=== PATIENT | male | born 1965 | race Hispanic/Latino ===

== ENCOUNTER 2016-10-08 15:39 | Emergency (ER) | payer MEDICAID, OTHER ==
[2016-10-08 15:40] VITALS: BMI 19.3
[2016-10-08 15:51] VITALS: BP 124/82; PULSE 70; RESP 16; TEMP 97.9; O2SAT 99
[2016-10-08 16:57] LABS: BASO % 0.5 % (0.0-2.0); EOS # 0.2 K/uL (0.0-0.7); EOS % 2.3 % (0.0-4.0); HEMATOCRIT 48.1 % (35.0-51.0); LYMPH # 2.3 K/uL (1.0-4.3); LYMPH % 33.6 % (20.0-40.0); MEAN CELL VOLUME 87.2 fl (80.0-94.0); MEAN CORPUSCULAR HEMOGLOBIN 28.9 pg (27.0-31.0); MEAN CORPUSCULAR HGB CONC 33.1 g/dL (33.0-37.0); MEAN PLATELET VOLUME 8.6 fl (7.2-11.7); MONO # 0.5 K/uL (0.0-0.8); MONO % 6.6 % (0.0-10.0); NEUT # 3.9 K/uL (1.8-7.0); NRBC % 0.1 % (0.0-0.0); RED CELL DISTRIBUTION WIDTH 13.5 % (11.5-14.5); WHITE BLOOD COUNT 6.9 K/uL (4.8-10.8)
[2016-10-08 17:13] LABS: BLOOD UREA NITROGEN 12 mg/dl (9-20); CALCIUM 9.5 mg/dL (8.4-10.2); CARBON DIOXIDE 21 mmol/L (22-30); CHLORIDE 106 mmol/L (98-107); GFR AFRICAN-AMERICAN > 60; GLUCOSE,RANDOM 74 mg/dL (75-110); POTASSIUM 5.2 MMOL/L (3.6-5.0); SODIUM 140 mmol/l (132-148)
[2016-10-08 17:43] LABS: RBC URINE 1193 /hpf (0-3); URINE BACTERIA RARE (<OCC); URINE BILIRUBIN NEGATIVE (NEGATIVE); URINE BLOOD LARGE (NEGATIVE); URINE COLOR YELLOW (YELLOW); URINE GLUCOSE (UA) NEG (Normal); URINE KETONE NEGATIVE (NEGATIVE); URINE LEUKOCYTE ESTERASE NEG Leu/uL (Negative); URINE PROTEIN 30 mg/dL (NEGATIVE); URINE UROBILINOGEN 0.2-1.0 mg/dL (0.2-1.0); WBC URINE 3 /hpf (0-5)
--- NOTE | 2016-10-08 17:50 | ED PDOC ---
HPI: Headache Time Seen by Provider: 10/08/16 16:01 Chief Complaint (Nursing): Headache Chief Complaint (Provider): headache History Per: Patient Additional Complaint(s): pt w/ hx cluster h/a, lung ca treated with radiation and R lobectomy presents c/ o R retroorbital h/a for the past three days. pain is intermittant w/ associated vomitting, photophobia. no recent head injury. no fever, blurred vision, cp, sob, abd pain, numbness, weakness to extremities. Past Medical History Reviewed: Historical Data, Nursing Documentation, Vital Signs Vital Signs: Last Vital Signs Temp 97.9 F 10/08/16 15:49 Pulse 70 10/08/16 15:49 Resp 16 10/08/16 15:49 BP 124/82 10/08/16 15:49 Pulse Ox 99 10/08/16 15:49 - Medical History PMH: Asthma, Depression, HTN, Kidney Stones, Chronic Kidney Disease Denies: Diabetes, Emphysema, Hepatitis, HIV, Seizures, Sexually Transmitted Disease - Family History Family History: States: No Known Family Hx - Social History Current smoker - smoking cessation education provided: Yes Alcohol: Social Drugs: Denies - Immunization History Hx Influenza Vaccination: No Hx Pneumococcal Vaccination: Yes - Home Medications Home Medications: Ambulatory Orders Medication Instructions Recorded Famotidine [Pepcid] 20 mg PO BID #60 tab 08/05/15 Sertraline [Zoloft] 100 mg PO DAILY #30 tab 08/05/15 Tamsulosin [Flomax] 0.4 mg PO HS #30 cap 08/05/15 Sumatriptan [Imitrex] 5 mg NS ONCE #1 spray 10/08/16 - Allergies Allergies/Adverse Reactions: Allergies Allergy/AdvReac Type Severity Reaction Status Date / Time No Known Allergies Allergy Verified 10/08/16 15:49 Review of Systems ROS Statement: Except As Marked, All Systems Reviewed And Found Negative Eyes: Negative for: Pain, Vision Change Neurological: Positive for: Headache. Negative for: Weakness, Numbness, Seizures, Altered Mental Status Physical Exam - Reviewed Nursing Documentation Reviewed: Yes Vital Signs Reviewed: Yes - Physical Exam Appears: Positive for: Non-toxic, In Acute Distress (painful) Head Exam: Positive for: ATRAUMATIC, NORMAL INSPECTION, NORMOCEPHALIC Skin: Positive for: Normal Color, Warm, DRY Eye Exam: Positive for: EOMI, Normal appearance, PERRL Neck: Positive for: Normal, Painless ROM Cardiovascular/Chest: Positive for: Regular Rate, Rhythm Respiratory: Positive for: CNT, Normal Breath Sounds Gastrointestinal/Abdominal: Positive for: Normal Exam, Bowel Sounds, Soft. Negative for: Tenderness Extremity: Positive for: Normal ROM. Negative for: Tenderness Neurologic/Psych: Positive for: Alert, layboy tender II-XII (slight smile asymetry on R side. otherwise CN II-XII grossly intact.), Oriented. Negative for: Motor/ Sensory Deficits - Laboratory Results Result Diagrams: 10/08/16 16:50 10/08/16 16:50 - ECG O2 Sat by Pulse Oximetry: 99 Medical Decision Making Medical Decision Making: pt reports relief of h/a with medications given. labs wnl. ct head shows nad. urine is bloody but pt is under tx by urology for stricture and is due for a proceedure. is taking cipro presently. will cx urine. will d/c home on imitrex to f/u neurology. Disposition - Clinical Impression Clinical Impression: Cluster headache - Patient ED Disposition Is Patient to be Admitted: No - Disposition Referrals: [facility] [Outside] Gwyn Peralta MD [Medical Doctor] - Disposition: Routine/Home Disposition Time: 18:30 Condition: IMPROVED Prescriptions: Sumatriptan [Imitrex] 5 mg NS ONCE #1 spray Instructions: Cluster Headache (ED)
--- NOTE | 2016-10-09 10:31 | CT ---
PROCEDURE: CT HEAD WITHOUT CONTRAST. HISTORY: headache COMPARISON: None available. TECHNIQUE: Axial computed tomography images were obtained through the head/brain without intravenous contrast. Radiation dose: Total exam DLP = 1132 mGy-cm. This CT exam was performed using one or more of the following dose reduction techniques: Automated exposure control, adjustment of the mA and/or kV according to patient size, and/or use of iterative reconstruction technique. FINDINGS: HEMORRHAGE: No intracranial hemorrhage. BRAIN: No mass effect or edema. No atrophy or chronic microvascular ischemic changes. VENTRICLES: Unremarkable. No hydrocephalus. CALVARIUM: Unremarkable. PARANASAL SINUSES: Unremarkable as visualized. No significant inflammatory changes. MASTOID AIR CELLS: Unremarkable as visualized. No inflammatory changes. OTHER FINDINGS: None. IMPRESSION: Normal CT of the Head.
== END 2016-10-08 18:52 | disposition home or self-care (01) ==
LOC: H.ER 15:39
DX: G44.009 Cluster headache syndrome, unspecified, not intractable (principal); N18.9 Chronic kidney disease, unspecified; D09.9 Carcinoma in situ, unspecified; I10 Essential (primary) hypertension; Z87.442 Personal history of urinary calculi